=== PATIENT | female | born 1985 | race African-American/Black ===

== ENCOUNTER 2022-07-22 17:49 | Emergency (ER) | payer OTHER ==
[~2022-07-22] VITALS: Ht 172.7 cm; Wt 81.8 kg
[~2022-07-22 17:49] MED LIST: ACET-3385 PO; ALBU17AE2 IH
[2022-07-22 18:05] VITALS: BP 142/74
[2022-07-22] MEDS ORDERED: SULF-261 PO (18:45)
[2022-07-22] MEDS ORDERED: OXYC10TA48 PO (18:49)
[2022-07-22] MEDS ORDERED: NALO4SPR NASAL (18:51)
== END 2022-07-22 19:03 | disposition home or self-care (01) ==
LOC: EMS 17:55
DX: L03.317 Cellulitis of buttock (principal); L02.416 Cutaneous abscess of left lower limb; J45.909 Unspecified asthma, uncomplicated
CPT/HCPCS: 87070; 87205; 99283